=== PATIENT | female | born 1970 | race Asian ===

== ENCOUNTER 2017-06-05 07:13 | Day surgery (SDC) | payer BC ==
[~2017-06-05 07:13] MED LIST: CEFAZOLIN 1 GM INJ; LACTATED RINGER'S 1,000 ML IV*
[2017-06-05] MEDS ORDERED: FENTAnyl 50 MCG/ML VIAL (09:19)
[2017-06-05] MEDS ORDERED: SUCCINYLCHOLINE CHLORIDE 100 MG/5 ML SYG IV (09:32)
[2017-06-05] MEDS ORDERED: PROPOFOL 20 ML (09:32)
[2017-06-05] MEDS ORDERED: SUGAMMADEX SODIUM 200 MG/2 ML VIAL IV (09:32)
[2017-06-05] MEDS ORDERED: LIDOCAINE 100 MG SYRINGE (09:32)
[2017-06-05] MEDS ORDERED: ROCURONIUM 50 MG INJ (09:32)
[2017-06-05] MEDS ORDERED: HYDROmorphONE (0.2 MG/ML) 10ML SYG IV ×3 (10:00)
[2017-06-05] MEDS ORDERED: DIPHENHYDRAMINE 50 MG INJ IV (10:00)
[2017-06-05] MEDS ORDERED: METOCLOPRAMIDE 10 MG INJ IV (10:00)
[2017-06-05] MEDS ORDERED: FENTAnyl 50 MCG/ML VIAL IV ×2 (10:00)
[2017-06-05] MEDS: ONDANSETRON 4 MG INJ IV (10:55)
[2017-06-05] MEDS: MEPERIDINE 25 MG INJ IV (10:55)
== END 2017-06-05 12:20 | disposition home or self-care (01) ==
LOC: SDS 07:13
DX: N72 Inflammatory disease of cervix uteri (principal)
CPT/HCPCS: 58558; 84703; 88305